=== PATIENT | male | born 1955 | race Caucasian/White ===

== ENCOUNTER 2016-04-14 13:33 | Day surgery (SDC) | payer OTHER ==
[~2016-04-14] VITALS: Ht 175.3 cm; Wt 65.3 kg
[2016-04-14 14:42] VITALS: Ht 175.3 cm; Wt 65.3 kg
[2016-04-14] MEDS ORDERED: PREZCOBIX (14:50)
[2016-04-14] MEDS ORDERED: WELLBUTRIN (14:50)
[2016-04-14] MEDS ORDERED: DESCOVY (14:50)
[2016-04-14] MEDS ORDERED: LISINOPRIL (14:50)
[2016-04-14] MEDS ORDERED: AMBIEN (14:50)
[2016-04-14 15:09] VITALS: BP 129/71; PULSE 54; RESP 18
[2016-04-14] MEDS ORDERED: LOSARTAN-HCTZ (15:10)
[2016-04-14] MEDS ORDERED: PROPOFOL 20 ML ONE (15:18)
[2016-04-14] MEDS ORDERED: LIDOCAINE 100 MG SYRINGE ONE (15:18)
[2016-04-14] MEDS ORDERED: FENTAnyl 50 MCG/ML VIAL ONE (15:18)
[2016-04-14 16:05] VITALS: BP 114/73; PULSE 54; RESP 21
--- NOTE | 2016-04-14 23:16 | GILP ---
DATE OF PROCEDURE: 04/14/2016 DATE: 04/14/2016 NAME OF PROCEDURE: Colonoscopy to the cecum. SURGEON: Dejon Hand MD. PREMEDICATION: Monitored anesthesia care by anesthesiologist. INSTRUMENT USED: Olympus colonoscope. PREPARATION: Adequate. TECHNIQUE: After informed consent, with the patient/relatives understanding the procedure, its indic ations potential risks and complications, including but not limited to: allergic reaction, bleeding, perforation, infection, missed lesions, and, after all pertinent questions were answered to the pat ient's satisfaction, the patient/relatives signed the witnessed informed consent. Following this, premedication was administered slowly IV push by under careful cardiovascular and re spiratory monitoring with pulse oximetry, automatic blood pressure and professor of practice. Once the sedati ve effect was achieved, the patient was placed in the left lateral decubitus position, digital recta l examination was performed. The colonoscope was then introduced and advanced under visual control throughout all segments of the colon including: the rectum, sigmoid, descending colon, splenic flexu re, transverse colon, hepatic flexure, ascending colon and finally reaching the cecum which was cosme rly identified by transillumination, finger indentation and the ileocecal valve. Careful examinatio n of the mucosa of the lower gastrointestinal tract both on insertion as well as withdrawal of the i nstrument disclosed the following findings: Rectal Examination: No evidence of perirectal disease, no masses. Colonic Mucosa: Colonic mucosa unremarkable throughout. The ileocecal valve was clearly identified and appears unremarkable. The instrument was withdrawn reexamining the mucosa in detail. No addit ional abnormalities are noted with exception of moderate sized internal hemorrhoids. The instrument was then withdrawn, the patient tolerated the procedure well and was transferred out of the [facility]oscopy Suite awake and in good condition to continue recovery under observation. IMPRESSION: 1. Moderate sized internal hemorrhoids. 2. Otherwise, normal colonoscopy to cecum. PLAN: The patient will follow up as an outpatient. Annual Hemoccult stool testing is recommended a nd screening colonoscopy in 10 years is recommended as well. Dictated By: DEJON HAND MS/SUMMER Conf#: [id number] DID#: [id number] CC: DEJON HAND;*EndCC*
== END 2016-04-14 16:21 | disposition home or self-care (01) ==
LOC: GIL 13:33
PROVIDERS: ATTEND Internal Medicine Gastroenterology
DX: Z12.11 Encounter for screening for malignant neoplasm of colon (principal); K64.8 Other hemorrhoids; I10 Essential (primary) hypertension; F41.9 Anxiety disorder, unspecified
CPT/HCPCS: 45378; J2001; J3010; Z7610